=== PATIENT | male | born 1995 ===

== ENCOUNTER → 2023-03-23 | Outpatient (CLI) | payer OTHER ==
[2023-03-24 07:06] LABS: Mumps IgG Antibody 16.4 AU/mL (Immune >10.9); Varicella Zoster IgG Antibody <135 index (Immune >165)
== END | disposition home or self-care (01) ==
LOC: LAB 12:36
PROVIDERS: ATTEND Licensed Practical Nurse
DX: Z01.84 Encounter for antibody response examination (principal)
CPT/HCPCS: 36415; 86706; 86735; 86762; 86765; 86787